=== PATIENT | male | born 1960 | race Caucasian/White ===

== ENCOUNTER 2016-10-23 10:02 | Inpatient (IN) | payer BC, OTHER ==
[2016-10-23] VITALS (13 sets, daily range): BP systolic 91–128; BP diastolic 73–89; PULSE 65–86; TEMP 36.4–37.3; O2SAT 94–98; Ht 185.4 cm; Wt 93.0 kg
[~2016-10-23] VITALS: Ht 185.4 cm; Wt 93.0 kg
[~2016-10-23 10:02] MED LIST: ASPI81TA28 PO; CHOL100010 PO; MULT-506 PO; OMEG10007 PO; PSEU120T21 PO
[2016-10-23] MEDS ORDERED: ASPIRIN 81 MG CHEW PO STA (10:42)
[2016-10-23] MEDS: NITROGLYCERIN 0.4 MG SL PER TAB CHARGE SL PRN ×3 (10:47→11:35)
[2016-10-23 11:01] LABS: BASO % 0.2 %; BASO ABS # 0.01 K/uL (0-0.2); COMPLETE YES; EOS % 1.1 %; HEMATOCRIT 48.2 % (42-52); IG% 0.6 %; LYMPH % 36.1 %; LYMPH ABS # 2.37 K/uL (1.2-3.4); MEAN CELL VOLUME 81.1 fL (80-100); MEAN CORPUSCULAR HEMOGLOBIN 26.9 pg (25-34); MEAN CORPUSCULAR HGB CONC 33.2 g/dl (32-36); MEAN PLATELET VOLUME 10.3 fL (7.4-10.4); MONO % 8.8 %; NEUT % 53.2 %; PLATELET COUNT 195 K/uL (130-400); RED BLOOD COUNT 5.94 M/uL (4.7-6.1); WHITE BLOOD COUNT 6.57 K/uL (4.8-10.8)
[2016-10-23] MEDS ORDERED: ZINC1CAP PO (11:05)
[2016-10-23] MEDS ORDERED: CHOL1000 PO (11:05)
[2016-10-23] MEDS ORDERED: LACTCAP3 (11:10)
[2016-10-23 11:21] LABS: BUN/CREATININE RATIO 18.9 (10-20); CALCIUM 9.6 mg/dl (8.5-10.1); CREATININE 1.1 mg/dl (0.60-1.40); POTASSIUM 3.8 mmol/L (3.5-5.1)
--- NOTE | 2016-10-23 11:25 | DIAGNOSTIC IMAGING REPORT ---
CHEST ONE VIEW PORTABLE HISTORY: 56 years-old Male acute chest pain COMPARISON: None available TECHNIQUE: Portable upright AP view of the chest FINDINGS: Cardiomediastinal and hilar silhouettes are within normal limits. No pneumothorax, pleural effusion, focal airspace consolidation or overt pulmonary edema. Bones are grossly intact. IMPRESSION: No acute cardiopulmonary process. The above report was generated using voice recognition software. It may contain grammatical, syntax or spelling errors. Electronically signed by: Ziyad Booth M.D. 10/23/2016 11:24 AM Dictated Date/Time: 10/23/2016 11:23 AM
[2016-10-23 11:31] LABS: CKMB/CK RATIO 2.2 (0-3.0)
[2016-10-23] MEDS ORDERED: NITROGLYCERIN OINT 2% 1GM PACKET EXT SCH (11:45)
[2016-10-23] MEDS ORDERED: HEPARIN SOD 5000 UNIT/0.5 ML CARP ONE (11:57)
[2016-10-23] MEDS ORDERED: HEPARIN 25000 UNIT/500 ML D5W ONE (11:57)
[2016-10-23] MEDS ORDERED: NITROGLYCERIN OINT 2% 1GM PACKET ONE (11:59)
[2016-10-23 12:39] LABS: PARTIAL THROMBOPLASTIN RATIO 0.9; PROTHROMBIN TIME (PATIENT) 10.3 SECONDS (9.0-12.0)
[2016-10-23] MEDS ORDERED: MoRPHine SULFATE 4 MG/ML 1 ML CARP\\VIAL IV PRN (12:45)
[2016-10-23] MEDS ORDERED: ACETAMINOPHEN 325 MG TAB PO PRN ×2 (12:45→16:00)
[2016-10-23] MEDS ORDERED: ONDANSETRON INJ 2 MG/ML 2 ML VIAL IV PRN (12:45)
[2016-10-23] MEDS ORDERED: ALUMINUM/MAGNESIUM/SIMETH (MAALOX MAX) 30 ML UDC PO PRN (12:45)
[2016-10-23] MEDS ORDERED: NITROGLYCERIN 0.4 MG SL PER TAB CHARGE SL PRN ×2 (12:45→16:00)
[2016-10-23] MEDS ORDERED: MAGNESIUM HYDROXIDE SUSP 30 ML UDC PO PRN (12:45)
[2016-10-23] MEDS ORDERED: MoRPHine SULFATE 2 MG/ML CARP IV PRN (12:45)
[2016-10-23] MEDS ORDERED: POLYETHYLENE (MIRALAX) 17 GM PACK PO PRN (12:45)
[2016-10-23] MEDS ORDERED: NITROGLYCERIN 2% OINTMENT 30GM TUBE EXT SCH (12:45)
--- NOTE | 2016-10-23 12:55 | EMERGENCY ROOM VISIT NOTE ---
History Report prepared by Damian: Kanika Mendez Under the Supervision of: Dr. Mihir Boswell D.O. First contact with patient: 10:24 Chief Complaint: CARDIAC ASSESSMENT Stated Complaint: CHEST TIGHTNESS Nursing Triage Summary: triage note: pt reports "i have pain in both my pectoral muscles for the past several days i might habe stretched too much doing yoga this weekend, and yesterda both sides of my jaw started to hurt it is worse today." History of Present Illness The patient is a 56 year old male who presents to the Emergency Room for a cardiac assessment. The patient has been experiencing tightness across his chest for the past 2 days. His pain goes into his neck and his right arm. The patient states that he was doing yoga two days ago and was opening his chest and thinks that he may have pulled a muscle. Since then he has walked a few miles a day. He has been lifting weights as well and thinks that could be why his right arm is hurting. The patient rates his pain as a 4/10 in severity. Twisting seems to exacerbate his pain. He states that acupressure and stretching help to alleviate his pain. He felt fine throughout the night, but states that his pain has been constant throughout the morning today. He is diaphoretic and has had an intermittent cough. The patient denies any history of DM, HTN, heart disease, and smoking. Source of History: patient Onset: 2 days ago Position: chest Symptom Intensity: 4/10 Quality: other (tightness) Timing: constant Modifying Factors (Worsening): other (stretching, acupressure) Modifying Factors (Relieving): other (twisting) Associated Symptoms: + diaphoresis, + cough, + neck pain Note: Pt notes pain in his right arm. Review of Systems See HPI for pertinent positives & negatives. A total of 10 systems reviewed and were otherwise negative. Past Medical & Surgical Medical Problems: (1) NSTEMI (non-ST elevated myocardial infarction) (2) Reflux Esophagitis Surgical Problems: (1) History of hernia repair Family History FH: diabetes mellitus FH: heart disease FH: hypertension Social History Smoking Status: Never Smoker Smokeless Tobacco Use: No Alcohol Use: none Marital Status: Housing Status: lives with significant other Occupation Status: retired Current/Historical Medications Scheduled Aspirin (Aspirin Ec), 81 MG PO DAILY Cholecalciferol (Vitamin D3), 1 TAB PO DAILY Fish Oil ([place]-3), 1 CAP PO DAILY Multivitamin (Multivitamin), 1 TAB PO DAILY Pseudoephedrine-Guaifenesin (Mucinex D), 1 TAB PO DIRECTED Zinc Sulfate (Zinc Sulfate), 220 MG PO TID Miscellaneous Medications Lactobacillus (Acidophilus) Allergies Coded Allergies: Peanut (Verified Allergy, Intermediate, Headache, 10/23/16) Physical Exam Vital Signs Date Time Temp Pulse Resp B/P (MAP) Pulse Ox O2 Delivery O2 Flow Rate FiO2 10/23/16 12:38 71 16 116/82 97 Room Air 10/23/16 12:08 70 18 107/77 96 Room Air 10/23/16 11:35 65 14 109/80 95 Room Air 10/23/16 11:16 60 16 132/89 96 Room Air 10/23/16 10:47 54 18 143/96 97 Room Air 10/23/16 10:23 97 Room Air 10/23/16 10:19 64 10/23/16 10:09 36.3 67 18 137/88 97 Room Air Physical Exam GENERAL: alert, sitting up in bed, diaphoretic, ill appearing EYE EXAM: normal conjunctiva OROPHARYNX: no exudate, no erythema, lips, buccal mucosa, and tongue normal and mucous membranes are moist NECK: supple, no nuchal rigidity, no adenopathy, non-tender LUNGS: Clear to auscultation. Normal chest wall mechanics HEART: no murmurs, S1 normal and S2 normal CHEST: No reproducible anterior chest wall pain. ABDOMEN: abdomen soft, non-tender, normo-active bowel sounds, no masses, no rebound or guarding. BACK: Back is symmetrical on inspection and there is no deformity, no midline tenderness, no CVA tenderness. SKIN: no rashes and no bruising UPPER EXTREMITIES: upper extremities are grossly normal. LOWER EXTREMITIES: No pitting edema. Calves equal bilaterally. NEURO EXAM: Normal sensorium, cranial nerves II-XII grossly intact, normal speech, no gross weakness of arms, no gross weakness of legs. Medical Decision & Procedures ER Provider Diagnostic Interpretation: Radiology results as stated below per my review and the radiologist's interpretation: CHEST ONE VIEW PORTABLE HISTORY: 56 years-old Male acute chest pain COMPARISON: None available TECHNIQUE: Portable upright AP view of the chest FINDINGS: Cardiomediastinal and hilar silhouettes are within normal limits. No pneumothorax, pleural effusion, focal airspace consolidation or overt pulmonary edema. Bones are grossly intact. IMPRESSION: No acute cardiopulmonary process. The above report was generated using voice recognition software. It may contain grammatical, syntax or spelling errors. Electronically signed by: Ziyad Booth M.D. 10/23/2016 11:24 AM Dictated Date/Time: 10/23/2016 11:23 AM Laboratory Results 10/23/16 10:20 Red Blood Count 5.94, Mean Corpuscular Volume 81.1, Mean Corpuscular Hemoglobin 26.9, Mean Corpuscular Hemoglobin Concent 33.2, Mean Platelet Volume 10.3, Neutrophils (%) (Auto) 53.2, Lymphocytes (%) (Auto) 36.1, Monocytes (%) (Auto) 8.8, Eosinophils (%) (Auto) 1.1, Basophils (%) (Auto) 0.2, Neutrophils # (Auto) 3.50, Lymphocytes # (Auto) 2.37, Monocytes # (Auto) 0.58, Eosinophils # (Auto) 0.07, Basophils # (Auto) 0.01 10/23/16 10:20 Test 10/23/16 10:20 10/23/16 12:42 White Blood Count 6.57 K/uL (4.8-10.8) Red Blood Count 5.94 M/uL (4.7-6.1) Hemoglobin 16.0 g/dL (14.0-18.0) Hematocrit 48.2 % (42-52) Mean Corpuscular Volume 81.1 fL (80-100) Mean Corpuscular Hemoglobin 26.9 pg (25-34) Mean Corpuscular Hemoglobin Concent 33.2 g/dl (32-36) Platelet Count 195 K/uL (130-400) Mean Platelet Volume 10.3 fL (7.4-10.4) Neutrophils (%) (Auto) 53.2 % Lymphocytes (%) (Auto) 36.1 % Monocytes (%) (Auto) 8.8 % Eosinophils (%) (Auto) 1.1 % Basophils (%) (Auto) 0.2 % Neutrophils # (Auto) 3.50 K/uL (1.4-6.5) Lymphocytes # (Auto) 2.37 K/uL (1.2-3.4) Monocytes # (Auto) 0.58 K/uL (0.11-0.59) Eosinophils # (Auto) 0.07 K/uL (0-0.5) Basophils # (Auto) 0.01 K/uL (0-0.2) RDW Standard Deviation 40.3 fL (36.4-46.3) RDW Coefficient of Variation 13.5 % (11.5-14.5) Immature Granulocyte % (Auto) 0.6 % Immature Granulocyte # (Auto) 0.04 K/uL (0.00-0.02) Prothrombin Time 10.3 SECONDS (9.0-12.0) Prothromb Time International Ratio 1.0 (0.9-1.1) Activated Partial Thromboplast Time 22.3 SECONDS (21.0-31.0) Partial Thromboplastin Ratio 0.9 Anion Gap 3.0 mmol/L (3-11) Est Creatinine Clear Calc Drug Dose 82.7 ml/min Estimated GFR () 85.3 Estimated GFR (Non- 73.6 BUN/Creatinine Ratio 18.9 (10-20) Calcium Level 9.6 mg/dl (8.5-10.1) Total Creatine Kinase 102 U/L (39-308) Creatine Kinase MB 2.2 ng/ml (0.5-3.6) Creatine Kinase MB Ratio 2.2 (0-3.0) Troponin I 0.078 ng/ml (0-0.045) Laboratory results per my review. Medications Administered Medications (Trade) Dose Ordered Sig/Daniele Route Start Time Stop Time Status Last Admin Dose Admin Nitroglycerin (Nitrostat Tab) 0.4 mg Q5M PRN SL 10/23/16 10:45 11/22/16 10:44 10/23/16 11:35 0.4 MG Aspirin (Aspirin Chew) 162 mg NOW STAT PO 10/23/16 10:42 10/23/16 10:44 DC 10/23/16 10:46 162 MG Heparin Sodium/ Dextrose (Heparin 25,000 Unit/500ml D5W) 25,000 unit STK-MED ONCE .ROUTE 10/23/16 11:57 10/23/16 11:58 DC 10/23/16 12:05 25,000 UNIT Heparin Sodium (Porcine) (Heparin Sq 5000 Unit/0.5ml) 10,000 unit STK-MED ONCE .ROUTE 10/23/16 11:57 10/23/16 11:58 DC 10/23/16 12:03 5,000 UNIT Nitroglycerin (Nitroglycerin 2% Oint) 2 inch STK-MED ONCE .ROUTE 10/23/16 11:59 10/23/16 12:01 DC 10/23/16 12:06 2 INCH ECG Indication: bradycardia Rate (beats per minute): 50 Rhythm: sinus bradycardia Findings: nonspecific-ST abn (Inferior), no ectopy, other (normal axis) Comparison ECG Date: no prior available ED Course ED COURSE: Vital signs were reviewed and showed hypertensive. The patients medical record was reviewed The above diagnostic studies were performed and reviewed. ED treatments and interventions as stated above. 1024: The patient was evaluated in room B8. A complete history and physical examination was performed. 1042: Aspirin 162 mg PO 1045: Nitroglycerin 0.4 mg SL - PRN 1137: I reassessed the patient. His chest pain is now a 3/10. 1138: Heparin Sodium/Dextrose 5000 unit bolus, Heparin drip 1144: Upon reevaluation, the patient is feeling better. His chest pain is now a 1-2/10 after nitro. I discussed my findings with the patient and his . They understand and agree with the treatment plan. Based on the patients age, coexisting illnesses, exam and lab findings the decision to treat as an inpatient was made. The patient remained stable while under my care. The patient will be evaluated for further management. 1151: I reviewed the patient's case with Dr. Murrieta. [facility] will evaluate the patient for further management. 1153: I discussed the patient's case with Dr. Haywood of cardiology. He will have cardiology come to the ED to evaluate the patient for further management. 1216: Zenaida Patterson is at the bedside. 1232: I spoke with Dr. Patterson regarding the patient's treatment plan. He will take the patient to the cardiac catheterization lab. Medical Decision Differential diagnoses includes but is not limited to acute coronary syndrome, myocardial infarction, pericarditis, pulmonary embolus, aortic dissection, pneumonia, pneumothorax, musculoskeletal, shingles, esophageal. Patient is a 56-year-old male who presents to the ER for 2 days worth of intermittent chest pain associated with jaw pain and right arm pain. He notes it started again this morning and has been getting worse. He took several aspirin prior to arrival. On my initial evaluation EKG shows nonspecific inferior changes. He was given 2 baby aspirin as he had already taken aspirin prior to arrival. He was given 3 nitroglycerin with near complete resolution of his pain. Troponin was elevated at 0.08. He had no bleeding risk factors including recent trauma, recent surgeries, hemoptysis, hematemesis, hematuria or previous strokes/hemorrhagic strokes or any other bleeding risk factors. He was given a heparin bolus and placed on heparin drip. Nitropaste was applied. I discussed case with cardiology who then discussed case with interventional cardiology who evaluated the patient at bedside. Following their evaluation they will take him to the [facility]. Discussed case with internal medicine and they will admit the patient for further workup. Patient continued to have improvement of pain while in the ER. Medication Reconcilliation Current Medication List: was personally reviewed by me Blood Pressure Screening Patient's blood pressure: Elevated blood pressure Blood pressure disposition: Elevated BP felt to be situational Consults Time Called: 1148 Consulting Physician: Dr. Murrieta Returned Call: 1151 I reviewed the patient's case with Dr. Murrieta. [facility] will evaluate the patient for further management. Additional Consults: Time Called: 1150 Consulted Physician: Dr. Haywood Returned Call: 1153 Additional Comments: I discussed the patient's case with Dr. Haywood of cardiology. He will have cardiology come to the ED to evaluate the patient for further management. Time Called: 1232 Consulted Physician: Dr. Patterson Returned Call: 1232 Additional Comments: I spoke with Dr. Patterson regarding the patient's treatment plan. He will take the patient to the cardiac catheterization lab. Impression Primary Impression: NSTEMI (non-ST elevated myocardial infarction) Critical Care I have personally spent 35 minutes of critical care time in the direct management of this patient. This includes bedside care, interpretation of diagnostic studies, and testing, discussion with consultants, patient, and family members, and other required patient management activities. This 35 minutes is in excess of all separately billable procedures. Scribe Attestation The scribe's documentation has been prepared under my direction and personally reviewed by me in its entirety. I confirm that the note above accurately reflects all work, treatment, procedures, and medical decision making performed by me. Departure Information Dispostion Being Evaluated By Hospitalist Referrals Leonard Jama M.D. (PCP) Patient Instructions My [facility]
[2016-10-23] MEDS ORDERED: NiCARDipine HCL INJ 2.5 MG/ML 10 ML AMP ONE (12:56)
[2016-10-23] MEDS ORDERED: HEPARIN SOD (PORCINE) 1000 UNIT/ML 10 ML VIAL ONE ×2 (12:56→14:31)
[2016-10-23] MEDS ORDERED: FENTANYL CITRATE INJ 50 MCG/1 ML 2 ML VIAL ONE (12:56)
[2016-10-23] MEDS ORDERED: MIDAZOLAM HCL 1 MG/ML 2ML VIAL ONE (12:57)
[2016-10-23] MEDS ORDERED: NITROGLYCERIN/D5W 100MCG/ML 20ML SYR ONE (12:58)
--- NOTE | 2016-10-23 13:18 | Procedure Note ---
Pre-Mod Sedation Assessment General Date of Moderate Sedation: Oct 23, 2016. Vital Signs: Vital Signs Past 12 Hours Date Time Temp Pulse Resp B/P (MAP) Pulse Ox O2 Delivery O2 Flow Rate FiO2 10/23/16 12:38 71 16 116/82 97 Room Air 10/23/16 12:08 70 18 107/77 96 Room Air 10/23/16 11:35 65 14 109/80 95 Room Air 10/23/16 11:16 60 16 132/89 96 Room Air 10/23/16 10:47 54 18 143/96 97 Room Air 10/23/16 10:23 97 Room Air 10/23/16 10:19 64 10/23/16 10:09 36.3 67 18 137/88 97 Room Air Review Cardiovascular: regular rate, rhythm, no edema Abdomen: normal bowel sounds, non tender Lungs: chest non-tender, lungs clear Airway Class: II Pre-Sedation Airway Assessment Oral Cavity: WNL Able to Visualize Vocal Cords: No Short Thick Neck: No Hx of Sleep Apnea: No Smoking Status: Never Smoker Mallampati Classification: Class III ASA Classification: Class III Procedure Planning Contraindications-for Mod Sed: None Yes Notes The planned sedation has been discussed with the patient and consent obtained. I have identified the patient, determined the appropriateness of sedation and have assessed the patient immediately prior to the procedure. All medicine(s) and interventions are by my order.
[2016-10-23] MEDS ORDERED: DOPamine 400MG / 250ML D5W ONE (13:56)
[2016-10-23] MEDS ORDERED: ATROPINE SULFATE 0.1 MG/ML 10 ML SYR ONE (13:58)
[2016-10-23 14:34] LABS: ESTIMATED AVERAGE GLUCOSE 117 mg/dl; HA1C FLAG Normal (Normal)
--- NOTE | 2016-10-23 14:43 | History and Physical ---
History & Physical Date of Service Oct 23, 2016. History & Physical admit #[id number]
[2016-10-23] MEDS ORDERED: TICAGRELOR 90 MG TAB PO ONE (14:49)
--- NOTE | 2016-10-23 15:08 | Procedure Note ---
Post-Mod Sedation Assessment General Date of Moderate Sedation Oct 23, 2016. Vital Signs: Vital Signs Past 12 Hours Date Time Temp Pulse Resp B/P (MAP) Pulse Ox O2 Delivery O2 Flow Rate FiO2 10/23/16 12:38 71 16 116/82 97 Room Air 10/23/16 12:08 70 18 107/77 96 Room Air 10/23/16 11:35 65 14 109/80 95 Room Air 10/23/16 11:16 60 16 132/89 96 Room Air 10/23/16 10:47 54 18 143/96 97 Room Air 10/23/16 10:23 97 Room Air 10/23/16 10:19 64 10/23/16 10:09 36.3 67 18 137/88 97 Room Air Review - Discharge Criteria Vital Signs Stable: Yes Alert/Oriented/Conversant: Yes Returned to Baseline Mental St: Yes Nausea Absent/Minimal: Yes Pain/Discomfort/Absent/Minimal: Yes Normal/Baseline Respirations: Yes Active Bleeding?: No Pt Received D/C Instructions: N/A Prescriptions Given: None Specific Proced. D/C Criteria Distal Pulses Present (Cardiac: Yes Groin site assessed-Card Cath: N/A Voided Prior To Discharge: N/A Discharged Patients Adult Escort/Transportation: Yes
--- NOTE | 2016-10-23 15:16 | HISTORY & PHYSICAL EXAMINATION ---
DATE OF ADMISSION: 10/23/2016 CHIEF COMPLAINT: Chest pressure. HISTORY OF PRESENT ILLNESS: The patient is a very pleasant 56-year-old male accompanied by his . He noted that he came in for what he felt was probably muscle tightness; however, when the ER evaluated him he was very diaphoretic and actually had a mildly elevated troponin. On further questioning, he had what he felt to be muscle tightness in his chest intermittent, sort of substernal and a little more to the right, but he also noted a degree of fatigue. He had taken a walk today about 3 miles with his dog and did okay, but then whenever he was trying to do more aggressive aerobic exercise with his he actually had to stop due to fatigue. He notes the fatigue has really only been a today thing. His symptoms have gotten better with rest, worse with exertion. It is an ache in his upper right chest to about mid clavicular line. He has been fatigued and again he was diaphoretic. He has not had any nausea, vomiting, diarrhea or presyncope. Review of systems is otherwise negative except for as above. Here in the ER, he again was found to have a slightly elevated troponin. He was given nitro, aspirin and heparin drip, but was still symptomatic, so he was taken to cath by cardiology. We discussed the case with cardiology as well. PAST MEDICAL HISTORY: None that he knows of. On directed questioning, he recalls his cholesterol hovering somewhere right around 200 as far as his total, but notes it has probably been at least 4 years since last time it was checked, so he is not really sure about the breakdown. He denies any known history of diabetes and notes that he is a frequent blood donor and typically runs in the 110/70 type range for his blood pressure. Otherwise, he has no formal medical history. MEDICATIONS: He takes no pharmaceuticals. He does take a multivitamin, acidophilus, vitamin D, fish oil and zinc. PAST SURGICAL HISTORY: He had lipomas removed. No other significant surgical history. ALLERGIES: No known drug allergies. He notes nuts give him a headache. Vaccinations are up to date. FAMILY HISTORY: Most notable as his brothers both have heart disease, diabetes, hypertension. His 1 brother had an NE and CABG at about age 42. His other had stenting at age 43. Mom has Afib and diabetes. Dad of esophageal cancer at age 72. Sister has hypertension. PHYSICAL EXAMINATION: VITAL SIGNS: Temp 36.3, pulse 67, blood pressure 137/88, respiratory rate 18, 97% on room air. GENERAL: He is awake, alert, oriented x3, pleasant, appears mildly anxious, but otherwise in no acute distress. HEAD, EYES, EARS, NOSE, AND THROAT: Normocephalic, atraumatic. Mucous membranes are moist. CARDIOVASCULAR: Regular. No rubs, murmurs, or gallops. LUNGS: Clear to auscultation bilaterally. No rales, rhonchi, or wheezes with good effort. ABDOMEN: Soft, nondistended, nontender. No masses or organomegaly. EXTREMITIES: Without cyanosis, clubbing or edema. No calf tenderness. SKIN: Shows no rashes, no pallor or icterus. NEUROLOGIC: Shows cranial nerves II-XII to be grossly intact. Gross motor and sensory are intact. MUSCULOSKELETAL EXAMINATION: Yields no gross lesions. MENTAL STATUS: Shows good recent and remote recall. Normal mood and affect. Good judgment and insight. LABORATORY AND DIAGNOSTICS: CBC shows a white count of 6.57, hemoglobin 16, platelets 195, basic metabolic panel with sodium 141, potassium 3.8, chloride 108, CO2 30, BUN 21, creatinine 1.1, calcium 9.6, glucose 117. CK total of 102 with an MB of 2.2, troponin 0.078. PT of 10.3, PTT 22.3. EKG was actually sinus marito without ischemic changes and his chest x-ray showed no acute cardiopulmonary process. ASSESSMENT AND PLAN: 1. Chest pain. Given his elevated troponin this appears to be a non-STEMI until proven otherwise. 2. Rlp-LS-[id number] elevation myocardial infarction. His main risk is his family history. I do question whether or not he has dyslipidemia. He does not appear to have hypertension, will follow his blood pressure given that it is extremely prevalent in this community. We will check an A1c to screen for type 2 diabetes. Check a lipid panel in the morning but given his refractory symptoms have to treat as though it is a non-STEMI. He has been given aspirin, nitro, heparin drip. We will start him on 80 mg of Lipitor. At this point in time while I would like to initiate beta isa and FREDERIC inhibitors blood pressures have been a bit more on the low side. He is about 110/80 whenever I am seeing him with pulse in the 60s and so until after catheterization I hesitate to put him on any medication that may make him hypotensive and thwart efforts for cath and certainly agree with him going straight to cath. Afterwards he will be admitted to telemetry, serial cardiac enzymes and further management based on the findings in the cath. 3. Deep venous thrombosis prophylaxis. Heparin drip.
[2016-10-23] MEDS ORDERED: ATORVASTATIN 40 MG TAB PO STA (15:33)
--- NOTE | 2016-10-23 15:47 | Cardiac Catheterization ---
Procedure Note Procedure Date Oct 23, 2016. Pre-Procedure Diagnosis Non STEMI AUC Score 8 Post-Procedure Diagnosis Severe CAD, Successful PCI Procedure(s) Performed Coronary Angiography, Drug Eluting Stent Peat Shredder Tender Leonardo Superintendent Of Generation(s) Jeff Estimated Blood Loss 20 Medication(s) Fentanyl, Heparin, Nitroglycerin, Versed, Lidocaine 1% Summary of Findings Indication: ACS/NSTEMI Access: 6Fr Right radial artery Catheters: [place], JR4; EBU 3.5 guide Findings: LM - Large caliber, luminal irregularities LAD - 20-30% proximal diffuse disease, mid and distal segment luminal irregularities as wraps around apex. 40-50% small 1st diagonal ostial stenosis. Circumflex - Moderate caliber, angulated take-off with 20% ostial stenosis, 100 % early-mid segment acute occlusion after OM1. RCA - Dominant, 30-40% proximal stenosis, 20-30% mid segment stenosis, R-PDA with luminal irregularities; 20% R-PAV proximal to distal PLB -- PCI -- Antithrombotic therapy: Heparin, Clopidogrel Procedure: LM cannulated with EBU 3.5 guide Circumflex almost retroflexed and BMW wire passed across lesion into OM2 with aid of 2.0 balloon. Mid circumflex lesion predilated with 2.0 compliant balloon 2.75 x 15 Clemons Resolute BULMARO delivered to lesion with aid of guideliner. Stent deployed at nominal atmospheres Unable to successfully deliver post-dilation balloon to stent 15-20% residual in-stent stenosis Post procedure GEENA 3 flow, no apparent cardiac complications. Arterial Closure: TR Band Summary: 1. Acute mid circumflex 100% occlusion 2. Mild to moderate non-obstructive LAD/RCA disease 3. Successful PCI of mid LAD with 2.75 x 15 Sonu Resolute BULMARO (15-20% residual stenosis) Recommendations: To PCU for continued monitoring Loaded with Ticagrelor 180mg in clinical laboratory technician Continue dual-antiplatelet therapy with ASA/Ticagrelor for 1 year Start high-intensity statin Start FREDERIC/Beta-isa, titrate as BP allows. Consult cardiac Rehab Hemodynamics Rest Ao: 108/61/82 Final Ao: 81/53/66 LV: -- Recommendations PCI without planned CABG Specimens None Radiation Exposure (mGy) 6407 Contrast (mls) 170 Visi Fluids (cc crystalloids) 800 NS Drains None Anesthesia Moderate Procedural Complication(s) None Disposition PCU ACC Data Cardiac Status Clinical evaluation leading to the procedure CAD Presntation: Non STEMI Anginal Classification: CCS III Heart Failure: NYHA Class: CCS I Cardiogenic Shock w/in 24Hrs: No Cardiac Arrest w/in 24Hrs: No Imaging studies past 6 months: No Stress studies past 6 months: No Coronary Anatomy Dominant: Right Left Main (% Stenosis): Normal LAD (% Stenosis): Proximal (30) Circumflex (% Stenosis): Mid (100) RCA (% Stenosis): Proximal (30-40) Closure Device Percutaneous Entry Location: Radial Recommendations: PCI without planned CABG PCI Indication: PCI for high risk Non-STEMI Lesion Segment Name: Circumflex Culprit Artery: Yes Stenosis Prior to Rx (%): 100 Chronic Total Occlusion: No IVUS: No FFR: No Pre-Procedure GEENA Flow: 0 Previously Treated Lesion: No Lesion Complexity: Non-High/Non-C Lesion Length (mm): 12 Thrombus Present: Yes Bifurcation Lesion: No Guidewire Across Lesion: Yes Guidewire: Stenosis Post-Procedure (%): 15 Post-Procedure GEENA Flow: 3 Device(s) Deployed: Yes Intraprocedure Events Significant Dissection: No Perforation: No
[2016-10-23] MEDS ORDERED: HEPARIN 25,000 UNIT/500ML D5W 500 ML IV PRN (16:00)
[2016-10-23] MEDS ORDERED: SODIUM CHLORIDE 0.9% 1000ML 1,000 ML IV SCH (16:00)
--- NOTE | 2016-10-23 16:49 | CARDIOLOGY CONSULTATION ---
DATE OF CONSULTATION: 10/23/2016 REASON FOR CONSULTATION: Chest pain/NSTEMI. CONSULTATION REQUESTED BY: Dr. Murrieta. HISTORY OF PRESENT ILLNESS: Mr. Metz is a 56-year-old man previously healthy with no real significant past medical history who presented today with intermittent chest pain over the last 2 days. The patient states that he is very active at baseline walking almost 6 miles every day, doing frequent aerobics and exercise. He has had no significant change in what he is able to do recently but with over the last 2 days has noted intermittent chest tightness. This is nonradiating and associated with shortness of breath or presyncope. Pain occurred this morning and persisted despite conservative measures and was associated with diaphoresis, as a result presented to the Emergency Department. In the ED, he was hemodynamically stable and his is initial EKG was unremarkable, his troponin was positive at 0.08. In the ED, he was placed on a nitropatch. received aspirin and statin and then chest pain was resolved. Due to typical symptoms and elevated troponin, decision was made to proceed to cardiac catheterization lab. There, he was found to have an occluded mid circumflex with mild to moderate nonobstructive disease in LAD and RCA. He was treated with PCI with 1 drug-eluting stent to his mid circumflex with good angiographic result. PAST MEDICAL HISTORY: Borderline hypercholesterolemia. PAST SURGICAL HISTORY: Prior lipoma removal and hernia repair. MEDICATIONS: None. ALLERGIES: None. 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 Does not smoke, does not drink any significant alcohol or illicit drugs. FAMILY HISTORY: He has 2 brothers, both he states they were overweight and ____ but had coronary artery disease in their 40s and 50s. No other significant family medical history. REVIEW OF SYSTEMS: Ten point review of systems completed and was negative as stated in HPI. PHYSICAL EXAMINATION: VITAL SIGNS: Temperature afebrile, blood pressure 116/82 and he is satting 97% on room air. His pulse was 71. GENERAL: The patient appears comfortable in no acute distress. HEENT: Sclerae are anicteric. Oropharynx is clear. Mucous membranes are moist. NECK: Supple with no lymphadenopathy. LUNGS: Clear to auscultation bilaterally. HEART: Regular rate and rhythm with no appreciable murmurs, rubs or gallops. ABDOMEN: Soft, nontender, nondistended with positive bowel sounds. EXTREMITIES: Warm. He had no significant lower extremity edema. He had intact distal pulses including 2+ radial pulses bilaterally and 2+ DP/PT pulses distally in his lower extremities. LABORATORY DATA: Hemoglobin 16, platelets of 195. INR 1.0. Sodium 141, potassium 3.8, BUN 21, creatinine of 1.1, CK-MB of 2.2. Troponin of 0.08. IMAGING DATA: Chest x-ray showed no acute cardiopulmonary process. EKG showed sinus rhythm with no significant ST abnormalities. IMPRESSION AND PLAN: 1. High risk non-ST elevation myocardial infarction. 2. Occluded mid circumflex, status post percutaneous coronary intervention with drug-eluting stent. 3. Questionable history of hyperlipidemia. The patient here with typical chest pain in the setting of elevated troponin and acute coronary syndrome. He was treated with percutaneous coronary intervention for an occluded mid circumflex with good angiographic result. Going forward, will continue patient on ticagrelor which was loaded in the Emergency Department. Plan on dual-antiplatelet therapy for the next year. Continue to trend troponins until it peaked. Will obtain an echocardiogram either today or tomorrow. We will monitor him on telemetry overnight, start low dose beta isa and FREDERIC inhibitor as blood pressure and heart rate allow. We will consult cardiac rehabilitation. Assuming unremarkable course, potential discharge maybe tomorrow, possibly the day after. Thank you for allowing us to participate in the care of this patient. Please contact with any questions.
[2016-10-23] MEDS: TICAGRELOR 90 MG TAB PO SCH (20:17)
[2016-10-23] MEDS: METOPROLOL TARTRATE 25 MG TAB PO SCH (20:18)
[2016-10-24 03:54] LABS: CHOLESTEROL/HDL RATIO 6.6; CKMB/CK RATIO 10.1 (0-3.0)
[2016-10-24 04:00] VITALS: BP 121/83; PULSE 74; TEMP 36.4; O2SAT 97
[2016-10-24 07:31] VITALS: BP 120/83; PULSE 59; TEMP 36.8; O2SAT 95
[2016-10-24] MEDS: ASPIRIN 81 MG ECTAB PO SCH (08:54)
[2016-10-24] MEDS: METOPROLOL TARTRATE 25 MG TAB PO SCH ×2 (08:54→19:58)
[2016-10-24] MEDS: LISINOPRIL 5 MG TAB PO SCH (08:54)
[2016-10-24] MEDS: ATORVASTATIN 40 MG TAB PO SCH (08:55)
[2016-10-24] MEDS: TICAGRELOR 90 MG TAB PO SCH ×2 (09:58→19:58)
[2016-10-24 11:39] VITALS: BP 116/80; PULSE 65; TEMP 36.9; O2SAT 94
--- NOTE | 2016-10-24 12:11 | ECHOCARDIOGRAM REPORT ---
*NOTICE TO RECEIVING REPUBLICAN AGENCY This information is strictly Confidential and protected under [place] law. [place] law prohibits you from making any further disclosure of this information unless further disclosure is expressly permitted by the written consent of the person to whom it pertains or is authorized by law. A general authorization for the release of medical or other information is not sufficient for this purpose. Hospital accepts no responsibility if the information is made available to any other person, INCLUDING THE PATIENT. Interpretation Summary * Name: YESENIA MUNSON Study Date: 10/24/2016 06:54 AM BP: 116/82 mmHg * Patient Location: C.2T\S\S241\S\2 HR: 75 * : 1960 (M/d/yyyy) Gender: Male Height: 73 in * Age: 56 yrs Ethnicity: CA Weight: 201 lb * Ordering Physician: Mihir Murrieta * Referring Physician: Self, Referred * Performed By: Nick Lynne RCS * * Reason For Study: Subendocardial DE * BSA: 2.2 m2 * -- Conclusions -- * 1. Normal LV size and wall thickness. * 2. Normal overall LV systolic function. LVEF 55-60%. Moderate inferolateral hypokinesis. * 3. Normal RV size and function. * 4. No significant valvular pathology. * 5. No prior studies for comparison. Procedure Details * Left Ventricle The left ventricle is grossly normal size. There is normal left ventricular wall thickness. Ejection Fraction = 55-60%. There is moderate posterior wall hypokinesis. * Right Ventricle The right ventricle is grossly normal size. The right ventricular systolic function is normal as assessed by tricuspid annular plane systolic excursion (TAPSE) (normal >1.5 cm). * Atria The left atrial size is normal. Right atrial size is normal. No ASD detected; PFO is not assessed. * Mitral Valve The mitral valve is grossly normal. There is no mitral valve stenosis. There is mild mitral regurgitation. * Tricuspid Valve The tricuspid valve is not well visualized, but is grossly normal. There is trace tricuspid regurgitation. * Aortic Valve The aortic valve opens well. The aortic valve is trileaflet. No hemodynamically significant valvular aortic stenosis. There is no significant aortic regurgitation. * Pulmonic Valve The pulmonary valve is inadequately visualized, but the Doppler data is adequate for interpretation. Pulmonic stenosis is absent. There is no significant pulmonary regurgitation. * Great Vessels The aortic root and proximal ascending aorta are normal sized. * Pericardium/Pleural There is no pericardial effusion. * Great Vessels Dilated inferior vena cava with reduced collapsability with sniff indicates an elevated right atrial pressure of 15 mmHg * * MMode 2D Measurements and Calculations * IVSd 1.1 cm * * LVIDd 4.4 cm * LVIDs 3.3 cm * LVPWd 1.0 cm * * IVS/LVPW 1.1 * FS 24.9 % * EDV(Teich) 85.4 ml * ESV(Teich) 43.0 ml * EF(Teich) 49.6 % * * EDV(cubed) 82.3 ml * ESV(cubed) 34.8 ml * EF(cubed) 57.7 % * * LV mass(C)d 161.7 grams * LV mass(C)dI 75.0 grams/m\S\2 * * SV(Teich) 42.3 ml * SI(Teich) 19.6 ml/m\S\2 * SV(cubed) 47.5 ml * SI(cubed) 22.0 ml/m\S\2 * * Ao root diam 3.4 cm * Ao root area 9.1 cm\S\2 * * LVOT diam 2.2 cm * LVOT area 3.8 cm\S\2 * * EDV(MOD-sp4) 107.6 ml * ESV(MOD-sp4) 45.6 ml * EF(MOD-sp4) 57.6 % * * EDV(MOD-sp2) 98.7 ml * ESV(MOD-sp2) 41.4 ml * EF(MOD-sp2) 58.0 % * * SV(MOD-sp4) 62.0 ml * SI(MOD-sp4) 28.7 ml/m\S\2 * * SV(MOD-sp2) 57.2 ml * SI(MOD-sp2) 26.5 ml/m\S\2 * * * Doppler Measurements and Calculations * MV E max caroline 96.5 cm/sec * MV A max caroline 69.0 cm/sec * * MV E/A 1.4 * * MV dec time 0.11 sec * * Ao V2 max 99.7 cm/sec * Ao max PG 4.0 mmHg * Ao max PG (full) 2.7 mmHg * BERNARD(V,A) 1.8 cm\S\2 * BERNARD(V,D) 1.8 cm\S\2 * * LV V1 max PG 1.3 mmHg * * LV V1 max 45.8 cm/sec * * TR max caroline 250.2 cm/sec * * *
--- NOTE | 2016-10-24 12:20 | Cardiology Follow-Up ---
Subjective Subjective Date of Service: Oct 24, 2016. Pt evaluation today including: conversation w/ patient, conversation w/ family , physical exam, chart review, lab review, review of studies, review of inpatient medication list Additional Details: No chest pain. Feeling well this AM. No significant pain at access site. Tele - intermittent bundle branch block. Review of Systems Constitutional: No fever Respiratory: No cough, No sputum Cardiac: No chest pain Abdomen: No pain Heme: No abnormal bleeding/bruising Endo: No fatigue Skin: No rash Objective Vital Signs Last Vital Signs Documentation Date Time Temp Pulse Resp B/P (MAP) Pulse Ox O2 Delivery O2 Flow Rate FiO2 10/24/16 11:39 36.9 65 18 116/80 (92) 94 Room Air Physical Exam: General Appearance: no apparent distress ENT: hearing grossly normal Neck: no JVD Respiratory/Chest: lungs clear Cardiovascular: regular rate, rhythm, no edema, no JVD, no murmur Abdomen: normal bowel sounds, non tender, soft Extremities: no pedal edema, no calf tenderness, + pertinent finding (minimal ecchymosis at right radial artery access site. No hematoma. Intact pulse, distal sensation) Neurologic/Psychiatric: alert, normal mood/affect, oriented x 3 Skin: normal color, warm/dry Assessment and Plan 1. NSTEMI/occluded mid circumflex -- s/p PCI with BULMARO 2. Dyslipidemia 3. Intermittent bundle branch block. Chest pain free. Hemodynamically stable. LV function largely preserved on echo. No access site complications. -- Trend troponins until peaks -- Continue DAPT with ASA/Ticagrelor -- Continue FREDERIC/Beta-isa -- Continue high-intensity statin. From a cardiac standpoint would continue to monitor overnight. If stable possible d/c tomorrow AM. Medications: Current Inpatient Medications Medications (Trade) Dose Ordered Sig/Daniele Route Start Time Stop Time Status Last Admin Dose Admin Morphine Sulfate (MoRPHine SULFATE INJ) 4 mg Q4 PRN IV 10/23/16 12:45 11/06/16 12:44 Acetaminophen (Tylenol Tab) 650 mg Q4H PRN PO 10/23/16 12:45 11/22/16 12:44 Al Hydrox/Mg Hydrox/Simethicone (Maalox Max Susp) 15 ml Q4H PRN PO 10/23/16 12:45 11/22/16 12:44 Magnesium Hydroxide (Milk Of Magnesia Susp) 30 ml Q12H PRN PO 10/23/16 12:45 11/22/16 12:44 Ondansetron HCl (Zofran Inj) 4 mg Q6H PRN IV 10/23/16 12:45 11/22/16 12:44 Nitroglycerin (Nitrostat Tab) 0.4 mg UD PRN SL 10/23/16 12:45 11/22/16 12:44 Morphine Sulfate (MoRPHine SULFATE INJ) 2 mg Q30M PRN IV 10/23/16 12:45 11/06/16 12:44 Aspirin (Ecotrin Tab) 81 mg QAM PO 10/24/16 09:00 11/23/16 08:59 10/24/16 08:54 81 MG Polyethylene (Miralax Powder Packet) 17 gm DAILY PRN PO 10/23/16 12:45 11/22/16 12:44 Atorvastatin Calcium (Lipitor Tab) 80 mg QAM PO 10/24/16 09:00 11/23/16 08:59 10/24/16 08:55 80 MG Metoprolol Tartrate (Lopressor Tab) 12.5 mg Q12 PO 10/23/16 21:00 11/22/16 20:59 10/24/16 08:54 12.5 MG Lisinopril (Zestril Tab) 5 mg QAM PO 10/24/16 09:00 11/23/16 08:59 10/24/16 08:54 5 MG Ticagrelor (Brilinta Cap) 90 mg BID PO 10/23/16 21:00 11/22/16 20:59 10/24/16 09:58 90 MG Lab Results: Test 10/23/16 14:24 10/24/16 02:47 Kaolin Activated Coagulation Time 224 SECONDS (94-140) Total Creatine Kinase 1332 U/L (39-308) Creatine Kinase MB 134.8 ng/ml (0.5-3.6) Creatine Kinase MB Ratio 10.1 (0-3.0) Troponin I 35.400 ng/ml (0-0.045) Triglycerides Level 237 mg/dl (0-150) Cholesterol Level 198 mg/dl (0-200) HDL Cholesterol 30 mg/dl LDL Cholesterol, Calculated 121 mg/dl VLDL Cholesterol, Calculated 47 mg/dl Cholesterol/HDL Ratio 6.6
[2016-10-24 15:51] VITALS: BP 112/76; PULSE 72; TEMP 36.8; O2SAT 94
[2016-10-24 19:52] VITALS: BP 110/76; PULSE 74; TEMP 36.8; O2SAT 96
--- NOTE | 2016-10-24 20:22 | Hospitalist Progress Note ---
Hospitalist Progress Note Date of Service Oct 24, 2016. Subjective Pt evaluation today including: conversation w/ patient, conversation w/ family , physical exam, chart review, lab review, review of studies Pain: none Medications Medications (Trade) Dose Ordered Sig/Daniele Route Start Time Stop Time Status Last Admin Dose Admin Aspirin (Ecotrin Tab) 81 mg QAM PO 10/24/16 09:00 11/23/16 08:59 10/24/16 08:54 81 MG Atorvastatin Calcium (Lipitor Tab) 80 mg QAM PO 10/24/16 09:00 11/23/16 08:59 10/24/16 08:55 80 MG Metoprolol Tartrate (Lopressor Tab) 12.5 mg Q12 PO 10/23/16 21:00 11/22/16 20:59 10/24/16 19:58 12.5 MG Lisinopril (Zestril Tab) 5 mg QAM PO 10/24/16 09:00 11/23/16 08:59 10/24/16 08:54 5 MG Ticagrelor (Brilinta Cap) 90 mg BID PO 10/23/16 21:00 11/22/16 20:59 10/24/16 19:58 90 MG Objective Vital Signs Date Time Temp Pulse Resp B/P (MAP) Pulse Ox O2 Delivery O2 Flow Rate FiO2 10/24/16 16:00 Room Air 10/24/16 15:51 36.8 72 20 112/76 (88) 94 Room Air 10/24/16 12:00 Room Air 10/24/16 11:39 36.9 65 18 116/80 (92) 94 Room Air 10/24/16 08:00 Room Air 10/24/16 07:31 36.8 59 18 120/83 (95) 95 Room Air 10/24/16 04:00 36.4 74 18 121/83 (96) 97 Room Air 10/24/16 04:00 Room Air 10/24/16 00:00 Room Air 10/23/16 23:12 37.0 86 19 91/78 (82) 95 Room Air 10/23/16 22:00 36.9 79 18 126/73 (90) 94 Room Air 10/23/16 21:00 37.3 67 18 127/77 (94) 94 Room Air Physical Exam General Appearance: no apparent distress Eyes: normal inspection ENT: hearing grossly normal Neck: supple Respiratory/Chest: lungs clear Cardiovascular: regular rate, rhythm, no edema Abdomen: normal bowel sounds Extremities: normal range of motion Neurologic/Psychiatric: alert, normal mood/affect Laboratory Results Last 24 Hours Test 10/24/16 02:47 Total Creatine Kinase 1332 U/L Creatine Kinase MB 134.8 ng/ml Creatine Kinase MB Ratio 10.1 Troponin I 35.400 ng/ml Triglycerides Level 237 mg/dl Cholesterol Level 198 mg/dl HDL Cholesterol 30 mg/dl LDL Cholesterol, Calculated 121 mg/dl VLDL Cholesterol, Calculated 47 mg/dl Cholesterol/HDL Ratio 6.6 Assessment and Plan 56 y.o with family h.o CAD presented with GA sp angioplasty and stenting mid circ BULMARO time 1 1. CAD Discussed in detail with the patient and his . All medications for CAD 2. Hypercholestolemia Lipitor 3. HTN BBlocker secondary to CAD 4. Family h.o diabetes discussed in detail. Discharge planning: home
[2016-10-24 23:24] VITALS: BP 92/52; PULSE 63; TEMP 36.9; O2SAT 95
[2016-10-25 03:10] VITALS: BP 98/60; PULSE 66; TEMP 36.3; O2SAT 94
[2016-10-25 07:42] VITALS: BP 108/73; PULSE 66; TEMP 36.5; O2SAT 93
[2016-10-25 08:12] LABS: CKMB/CK RATIO 4.1 (0-3.0)
[2016-10-25] MEDS: METOPROLOL TARTRATE 25 MG TAB PO SCH (08:29)
[2016-10-25] MEDS: ASPIRIN 81 MG ECTAB PO SCH (08:29)
[2016-10-25] MEDS: ATORVASTATIN 40 MG TAB PO SCH (08:29)
[2016-10-25] MEDS: TICAGRELOR 90 MG TAB PO SCH (08:29)
[2016-10-25] MEDS: LISINOPRIL 5 MG TAB PO SCH (08:30)
[2016-10-25] MEDS ORDERED: BRL90 PO (10:09)
[2016-10-25] MEDS ORDERED: ATOR-26 PO (10:09)
[2016-10-25] MEDS ORDERED: LPR25 PO (10:09)
[2016-10-25] MEDS ORDERED: LSN5 PO (10:09)
[2016-10-25 10:13] VITALS: BP 108/73; PULSE 66; TEMP 36.5; O2SAT 93
--- NOTE | 2016-10-25 10:19 | Discharge Instructions ---
Discharge Instructions Date of Service Oct 25, 2016. Admission Reason for Admission: Nstemi, Non St Elevated Myocardial Infarction Discharge Discharge Diagnosis / Problem: Nstemi Discharge Goals Goal(s): Improve function Activity Recommendations Activity Limitations: per Instructions/Follow-up section (Discuss with Dr. Patterson) Exercise/Sports Limitations: gradually increase as tolerated . Instructions / Follow-Up Instructions / Follow-Up Home Care: * Take your medications exactly as directed. Don't skip doses. * Remember that recovery after a heart attack takes time. Plan to rest for at lease 4-8 weeks while you recover. Then return to normal activity when your doctor says it's okay. * Ask your doctor about joining a heart rehabilitation program. * Tell your doctor if you are feeling depressed. Feelings of sadness are common after a heart attack, but it is important that you speak to someone if you are feeling overwhelmed by these feelings. * If you are having chest pain, call 911 for an ambulance. Do NOT drive yourself to the hospital. * Ask your family members to learn CPR. * Learn to take your own blood pressure and pulse. Keep a record of your results. Ask your doctor when you should seek emergency medical attention. He or she will tell you which blood pressure reading is dangerous. Lifestyle Changes: * Maintain a healthy weight. Get help to lose any extra pounds. * Cut back on salt. * Limit canned, dried, packaged, and fast foods. * Don't add salt to your food. * Season foods with herbs instead of salt when you cook. * Break the smoking habit. Enroll in a stop-smoking program to improve your chances of success. * Limit fatty foods. * Ask your doctor about having your lipid levels checked regularly. * Build up your activity according to your doctor's recommendation. * Ask your doctor when it's okay to resume sexual activity. * Tell your doctor about any erectile dysfunction (ED) medication you are taking. Some ED medications are not safe if you take certain heart medications. * Try to manage stress. Follow Up: It is important for you to keep your follow up appointments with your medical provider. Current Hospital Diet Patient's current hospital diet: AHA Diet (Heart Healthy) Discharge Diet Recommended Diet: AHA Diet (Heart Healthy) Procedures Procedures Performed: Cath Echo Pending Studies Studies pending at discharge: no Laboratory Results Hemoglobin A1c Test 8/23/17 10:20 Range/Units Estimated Average Glucose 117 mg/dl Hemoglobin A1c 5.7 H 4.5-5.6 % Lipid Panel Test 10/24/16 02:47 Range/Units Triglycerides Level 237 H 0-150 mg/dl Cholesterol Level 198 0-200 mg/dl HDL Cholesterol 30 mg/dl Cholesterol/HDL Ratio 6.6 LDL Cholesterol, Calculated 121 mg/dl Medical Emergencies . Who to Call and When: Medical Emergencies: If at any time you feel your situation is an emergency, please call 911 immediately. Call 911 immediately or go to your nearest Emergency Room if you experience any of the following: Warning Signs and Symptoms of a Heart Attack * Chest pain that is not relieved by medication * Shortness of breath . Non-Emergent Contact Non-Emergency issues call your: Primary Care Provider . Past History Medical & Surgical History: (1) NSTEMI (non-ST elevated myocardial infarction) . "Provider Documentation" section prepared by Cabrera Cabral. . AMI Core Measures Reason no ASA as I/P: Treatment provided - N/A Reason no ASA at D/C: Treatment provided - N/A Reason no statin as I/P: Treatment provided - N/A Reason no statin at D/C: Treatment provided - N/A VTE Core Measure Inpt VTE Proph given/why not?: Unfractionated heparin SQ
--- NOTE | 2016-10-28 07:46 | DISCHARGE SUMMARY ---
Please see dictated H&P for full details of his presentation. The patient is a 56-year-old who presented with intermittent chest pain for 2 days. He usually walks 6 miles a day, but had been having intermittent chest tightness with some associated shortness of breath and he came into the hospital. Troponins were elevated, Dr. Patterson saw him for cardiology and recommended catheterization. Catheter revealed severe coronary artery disease. A drug-eluting stent was placed successfully to the mid LAD. The patient had an otherwise unremarkable post-catheterization stay. Echocardiogram was performed showed an EF of 55-60%. His troponin peaked at 35. The patient will follow up with his primary care doctor in 1 week and cardiology as directed 2-4 weeks. The patient is interested in cardiac rehabilitation and will be contacted to help set that up by the cardiology office. Please see medication reconciliation sheet for full details of the medications he was discharged home on. Discharged in stable condition. Time spent in reviewing the chart, discussion with the patient on the date of discharge and his : 31 minutes.
== END 2016-10-25 10:56 | disposition home or self-care (01) | DRG 247 ==
LOC: C.EDB 10:04 → C.2T 12:45 → ENRESERV 14:06
PROVIDERS: ADMIT Family Medicine; ATTEND Family Medicine
PROC: 027034Z Dilation of Coronary Artery, One Artery with Drug-eluting Intraluminal Device, Percutaneous Approach (ICD-10-PCS; principal; 2016-10-23 12:37)
DX: I21.4 Non-ST elevation (NSTEMI) myocardial infarction (principal); E78.00 Pure hypercholesterolemia, unspecified; I25.10 Atherosclerotic heart disease of native coronary artery without angina pectoris; I10 Essential (primary) hypertension; Z82.49 Family history of ischemic heart disease and other diseases of the circulatory system; Z79.82 Long term (current) use of aspirin; Z79.899 Other long term (current) drug therapy; Z83.3 Family history of diabetes mellitus

== ENCOUNTER → 2017-05-06 | Outpatient (CLI) | payer OTHER ==
[~2017-05-06] MED LIST changes: +ATOR-26 PO; +BRL90 PO; +CHOL1000 PO; -CHOL100010 PO; +LACTCAP3; +LPR25 PO; +LSN5 PO; +ZINC1CAP PO
== END | disposition home or self-care (01) ==
LOC: C.LAB1850 07:55
PROVIDERS: ATTEND Internal Medicine
DX: E78.5 Hyperlipidemia, unspecified (principal)